=== PATIENT | female | born 1990 | race American Indian/Alaskan Native ===

== ENCOUNTER 2016-09-10 18:02 | Emergency (ER) | payer MEDICAID, OTHER ==
[2016-09-10] MEDS ORDERED: Ondansetron 4 MG/2 ML SDV IVPUSH ONE (18:39)
[2016-09-10] MEDS ORDERED: HYDROmorphone 0.5 MG/0.5 ML Syringe IVPUSH ONE (18:39)
[2016-09-10] MEDS ORDERED: Sodium Chloride 0.9% 1,000 ML IV SCH (18:45)
--- NOTE | 2016-09-10 18:45 | EDM.PDOC ---
[id number] Complaint: Abdominal Pain Stated Complaint: STOMACH PAIN Time Seen by Provider: 09/10/16 18:40 - History of Present Illness INITIAL COMMENTS - FREE TEXT/NARRATIVE: we elected to do an abdominal pelvic CT on this woman. She is a significant amount of stool present otherwise it was negative. Her urinalysis suggests a UTI. She was given 400 mg of Cipro IV and I will send her out with a prescription for Cipro she can fill tomorrow for this. 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 - Related Data Allergies/ADRs: Allergies Allergy/AdvReac Type Severity Reaction Status Date / Time quetiapine fumarate Allergy Severe Anaphylactic Verified 11/28/13 07:11 [From Seroquel] Shock diphenhydramine HCl Allergy Swelling Verified 11/28/13 02:13 [From Benadryl Allergy] Home Meds: Home Meds Acetaminophen [Tylenol] 650 mg PO Q4H PRN #100 tablet 05/04/15 [Rx] Pnv With Ca,No.72/Iron,Carb/FA [ Plus Iron Tablet] 1 each PO DAILY #100 tablet 05/04/15 [Rx] Course - Vital Signs Last Recorded V/S: Last Vital Signs Temp 36.9 C 09/10/16 19:06 Pulse 77 09/10/16 21:25 Resp 16 09/10/16 21:25 BP 112/52 L 09/10/16 21:25 Pulse Ox 97 09/10/16 21:25 - Orders/Labs/Meds Labs: Laboratory Tests 09/10/16 09/10/16 09/10/16 Range/Units 18:49 18:49 18:49 WBC 12.7 H (4.5-11.0) K/uL RBC 5.19 (3.30-5.50) M/uL Hgb 13.2 (12.0-15.0) g/dL Hct 41.3 (36.0-48.0) % MCV 80 (80-98) fL MCH 25 L (27-31) pg MCHC 32 (32-36) % Plt Count 366 (150-400) K/uL Neut % (Auto) 73 H (36-66) % Lymph % (Auto) 18 L (24-44) % [place] % (Auto) 6 (2-6) % Eos % (Auto) 2 (2-4) % Baso % (Auto) 1 (0-1) % Sodium 141 (140-148) mmol/L Potassium 3.9 (3.6-5.2) mmol/L Chloride 106 (100-108) mmol/L Carbon Dioxide 24 (21-32) mmol/L Anion Gap 11.4 (5.0-14.0) mmol/L BUN 15 D (7-18) mg/dL Creatinine 0.7 (0.6-1.0) mg/dL Est Cr Clr Drug Dosing 105.17 mL/min Estimated GFR (MDRD) > 60 (>60) Glucose 124 H (74-106) mg/dL Calcium 8.4 L (8.5-10.1) mg/dL Total Bilirubin 0.2 (0.2-1.0) mg/dL AST 12 L (15-37) U/L ALT 17 (12-78) U/L Alkaline Phosphatase 97 (46-116) U/L Total Protein 7.4 (6.4-8.2) g/dL Albumin 3.7 (3.4-5.0) g/dL Globulin 3.7 H (2.3-3.5) g/dL Albumin/Globulin Ratio 1.0 L (1.2-2.2) Amylase 105 (25-115) U/L Lipase 179 (73-393) U/L Urine Color Urine Appearance Urine pH (4.5-8.0) Ur Specific [place] (1.008-1.030) Urine Protein (NEGATIVE) mg/dL Urine Glucose (UA) (NEGATIVE) mg/dL Urine Ketones (NEGATIVE) mg/dL Urine Occult Blood (NEGATIVE) Urine Nitrite (NEGATIVE) Urine Bilirubin (NEGATIVE) Urine Urobilinogen (NORMAL) mg/dL Ur Leukocyte Esterase (NEGATIVE) Urine RBC (0-5) Urine WBC (0-5) Ur Epithelial Cells Amorphous Sediment Urine Bacteria Urine Mucus 09/10/16 Range/Units 19:58 WBC (4.5-11.0) K/uL RBC (3.30-5.50) M/uL Hgb (12.0-15.0) g/dL Hct (36.0-48.0) % MCV (80-98) fL MCH (27-31) pg MCHC (32-36) % Plt Count (150-400) K/uL Neut % (Auto) (36-66) % Lymph % (Auto) (24-44) % [place] % (Auto) (2-6) % Eos % (Auto) (2-4) % Baso % (Auto) (0-1) % Sodium (140-148) mmol/L Potassium (3.6-5.2) mmol/L Chloride (100-108) mmol/L Carbon Dioxide (21-32) mmol/L Anion Gap (5.0-14.0) mmol/L BUN (7-18) mg/dL Creatinine (0.6-1.0) mg/dL Est Cr Clr Drug Dosing mL/min Estimated GFR (MDRD) (>60) Glucose (74-106) mg/dL Calcium (8.5-10.1) mg/dL Total Bilirubin (0.2-1.0) mg/dL AST (15-37) U/L ALT (12-78) U/L Alkaline Phosphatase (46-116) U/L Total Protein (6.4-8.2) g/dL Albumin (3.4-5.0) g/dL Globulin (2.3-3.5) g/dL Albumin/Globulin Ratio (1.2-2.2) Amylase (25-115) U/L Lipase (73-393) U/L Urine Color Yellow Urine Appearance Slightly cloudy Urine pH 5.0 (4.5-8.0) Ur Specific [place] 1.030 (1.008-1.030) Urine Protein Negative (NEGATIVE) mg/dL Urine Glucose (UA) Normal (NEGATIVE) mg/dL Urine Ketones Negative (NEGATIVE) mg/dL Urine Occult Blood Negative (NEGATIVE) Urine Nitrite Negative (NEGATIVE) Urine Bilirubin Negative (NEGATIVE) Urine Urobilinogen Normal (NORMAL) mg/dL Ur Leukocyte Esterase Moderate (NEGATIVE) Urine RBC Not seen (0-5) Urine WBC 10-20 H (0-5) Ur Epithelial Cells Many Amorphous Sediment Not seen Urine Bacteria Many Urine Mucus Few Meds: Medications Discontinued Medications Generic Name Dose Route Start Last Admin Trade Name Freq PRN Reason Stop Dose Admin Hydromorphone HCl 0.5 mg 09/10/16 18:39 09/10/16 19:02 Dilaudid IVPUSH 09/10/16 18:40 0.5 mg ONETIME ONE Administration Hydromorphone HCl 1 mg 09/10/16 19:46 09/10/16 19:58 Dilaudid IVPUSH 09/10/16 19:47 1 mg ONETIME ONE Administration Sodium Chloride 1,000 mls @ 999 mls/hr 09/10/16 18:45 09/10/16 19:00 Normal Saline IV 999 mls/hr ASDIRECTED JAGDISH Administration Lactated Ringer's 1,000 mls @ 999 mls/hr 09/10/16 19:45 09/10/16 19:59 Ringers, Lactated IV 999 mls/hr ASDIRECTED JAGDISH Administration Ciprofloxacin/Dextrose 400 mg/ 200 mls @ 200 mls/hr 09/10/16 20:53 09/10/16 21:20 Premix IV 09/10/16 21:52 200 mls/hr ONETIME ONE Administration Lactated Ringer's 1,000 mls @ 999 mls/hr 09/10/16 21:15 09/10/16 21:17 Ringers, Lactated IV 999 mls/hr ASDIRECTED JAGDISH Administration Sodium Chloride 83 mls @ 3 mls/sec 09/10/16 21:11 09/10/16 21:53 Normal Saline IV 09/10/16 21:12 3 mls/sec ONETIME ONE Administration Iopamidol 141 ml 09/10/16 21:15 09/10/16 21:53 Isovue-300 (61%) IV 150 ml . DIRECTED JAGDISH Administration Ketorolac Tromethamine 30 mg 09/10/16 20:55 09/10/16 21:15 Toradol IVPUSH 09/10/16 20:56 30 mg ONETIME ONE Administration Morphine Sulfate 4 mg 09/10/16 21:49 09/10/16 22:01 Morphine IVPUSH 09/10/16 21:50 4 mg ONETIME ONE Administration Ondansetron HCl 4 mg 09/10/16 18:39 09/10/16 19:03 Zofran IVPUSH 09/10/16 18:40 4 mg ONETIME ONE Administration Sodium Chloride 10 ml 09/10/16 21:11 09/10/16 22:12 Normal Saline FLUSH 09/10/16 21:12 10 ml ONETIME ONE Administration Departure - Departure Time of Disposition: 23:29 Disposition: Home, Self-Care 01 Condition: good Clinical Impression: Constipation Qualifiers: Constipation type: unspecified constipation type Qualified Code(s): K59.00 - Constipation, unspecified Instructions: Constipation, Adult, Urinary Tract Infection, Adult Referrals: PCP,None [Primary Care Provider] - Forms: ED Department Discharge Additional Instructions: 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 I am also providing you an antibiotic for your urinary tract infection that you can greens picker tomorrow. We gave you a dose of antibiotics through the IV tonight for it so you're covered until tomorrow. <LauraAlize - Last Filed: 09/17/16 08:07> ED HPI GI/ABDOMINAL - General Source: Reports: Patient, Family History Limitations: Reports: No limitations - History of Present Illness INITIAL COMMENTS - FREE TEXT/NARRATIVE: Pt has a history of GB disease. About 3 years ago she was to have her GB out and she was too far along with her preg to have it out. She has had pain for the past 2 days. She is nauseated but has not vomited. She had tacos yesterday and tody she had pizza. . She describes her pain in the midline extending more to the left. She is belchy. 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: Musculoskeletal History: Reports: Fracture Psychiatric History: Reports: Depression Social & Family History - Family History Family Medical History: Unobtainable Other Dermatologic Family History: Patient refuses to answer - Tobacco Use Smoking Status *Q: Light Tobacco Smoker Years of Tobacco use: 7 Packs/Tins Daily: 0.5 - Caffeine Use Caffeine Use: Reports: Soda - Alcohol Use Days Per Week of Alcohol Use: 0 - Recreational Drug Use Recreational Drug Use: No Drug Use in Last 12 Months: Yes Recreational Drug Type: Reports: Amphetamines (Speed), Ecstasy, Marijuana/ Hashish, Methamphetamine, Other (see below) Recreational Drug Use Frequency: Weekly Recreational Drug Last Use: 1 week ago ED ROS GENERAL - Review of Systems Review Of Systems: See Below Constitutional: Reports: decreased appetite HEENT: Reports: No symptoms Respiratory: Reports: No Symptoms Cardiovascular: Reports: No symptoms Endocrine: Reports: no symptoms GI/Abdominal: Reports: Abdominal pain, Decreased appetite, Nausea : Reports: no symptoms Musculoskeletal: Reports: no symptoms Skin: Reports: no symptoms Neurological: Reports: No Symptoms ED EXAM, GI/ABD - Physical Exam Exam: See Below Text/Narrative:: Pt arrived with pain in the epigastric area extending to the left. She had a normal stool this am. Exam Limited By: No limitations General Appearance: alert, anxious, moderate distress Ears: other Nose: normal inspection Throat/Mouth: Normal inspection Head: atraumatic Neck: normal inspection Respiratory/Chest: no respiratory distress Cardiovascular: regular rate, rhythm GI/Abdominal: tenderness, other (pt is tender in the epigastric area and this extends to the left. She does not have true guarding. ) Rectal (Female) Exam: Deferred Back Exam: normal inspection Extremities: normal inspection Neurological: alert, oriented, normal cognition Course - Orders/Labs/Meds Labs: Laboratory Tests 09/10/16 09/10/16 09/10/16 Range/Units 18:49 18:49 18:49 WBC 12.7 H (4.5-11.0) K/uL RBC 5.19 (3.30-5.50) M/uL Hgb 13.2 (12.0-15.0) g/dL Hct 41.3 (36.0-48.0) % MCV 80 (80-98) fL MCH 25 L (27-31) pg MCHC 32 (32-36) % Plt Count 366 (150-400) K/uL Neut % (Auto) 73 H (36-66) % Lymph % (Auto) 18 L (24-44) % [place] % (Auto) 6 (2-6) % Eos % (Auto) 2 (2-4) % Baso % (Auto) 1 (0-1) % Sodium 141 (140-148) mmol/L Potassium 3.9 (3.6-5.2) mmol/L Chloride 106 (100-108) mmol/L Carbon Dioxide 24 (21-32) mmol/L Anion Gap 11.4 (5.0-14.0) mmol/L BUN 15 D (7-18) mg/dL Creatinine 0.7 (0.6-1.0) mg/dL Est Cr Clr Drug Dosing 105.17 mL/min Estimated GFR (MDRD) > 60 (>60) Glucose 124 H (74-106) mg/dL Calcium 8.4 L (8.5-10.1) mg/dL Total Bilirubin 0.2 (0.2-1.0) mg/dL AST 12 L (15-37) U/L ALT 17 (12-78) U/L Alkaline Phosphatase 97 (46-116) U/L Total Protein 7.4 (6.4-8.2) g/dL Albumin 3.7 (3.4-5.0) g/dL Globulin 3.7 H (2.3-3.5) g/dL Albumin/Globulin Ratio 1.0 L (1.2-2.2) Amylase 105 (25-115) U/L Lipase 179 (73-393) U/L Urine Color Urine Appearance Urine pH (4.5-8.0) Ur Specific [place] (1.008-1.030) Urine Protein (NEGATIVE) mg/dL Urine Glucose (UA) (NEGATIVE) mg/dL Urine Ketones (NEGATIVE) mg/dL Urine Occult Blood (NEGATIVE) Urine Nitrite (NEGATIVE) Urine Bilirubin (NEGATIVE) Urine Urobilinogen (NORMAL) mg/dL Ur Leukocyte Esterase (NEGATIVE) Urine RBC (0-5) Urine WBC (0-5) Ur Epithelial Cells Amorphous Sediment Urine Bacteria Urine Mucus 09/10/16 Range/Units 19:58 WBC (4.5-11.0) K/uL RBC (3.30-5.50) M/uL Hgb (12.0-15.0) g/dL Hct (36.0-48.0) % MCV (80-98) fL MCH (27-31) pg MCHC (32-36) % Plt Count (150-400) K/uL Neut % (Auto) (36-66) % Lymph % (Auto) (24-44) % [place] % (Auto) (2-6) % Eos % (Auto) (2-4) % Baso % (Auto) (0-1) % Sodium (140-148) mmol/L Potassium (3.6-5.2) mmol/L Chloride (100-108) mmol/L Carbon Dioxide (21-32) mmol/L Anion Gap (5.0-14.0) mmol/L BUN (7-18) mg/dL Creatinine (0.6-1.0) mg/dL Est Cr Clr Drug Dosing mL/min Estimated GFR (MDRD) (>60) Glucose (74-106) mg/dL Calcium (8.5-10.1) mg/dL Total Bilirubin (0.2-1.0) mg/dL AST (15-37) U/L ALT (12-78) U/L Alkaline Phosphatase (46-116) U/L Total Protein (6.4-8.2) g/dL Albumin (3.4-5.0) g/dL Globulin (2.3-3.5) g/dL Albumin/Globulin Ratio (1.2-2.2) Amylase (25-115) U/L Lipase (73-393) U/L Urine Color Yellow Urine Appearance Slightly cloudy Urine pH 5.0 (4.5-8.0) Ur Specific [place] 1.030 (1.008-1.030) Urine Protein Negative (NEGATIVE) mg/dL Urine Glucose (UA) Normal (NEGATIVE) mg/dL Urine Ketones Negative (NEGATIVE) mg/dL Urine Occult Blood Negative (NEGATIVE) Urine Nitrite Negative (NEGATIVE) Urine Bilirubin Negative (NEGATIVE) Urine Urobilinogen Normal (NORMAL) mg/dL Ur Leukocyte Esterase Moderate (NEGATIVE) Urine RBC Not seen (0-5) Urine WBC 10-20 H (0-5) Ur Epithelial Cells Many Amorphous Sediment Not seen Urine Bacteria Many Urine Mucus Few
[2016-09-10] MEDS ORDERED: Lactated Ringers 1,000 ML IV SCH ×2 (19:45→21:15)
[2016-09-10] MEDS ORDERED: HYDROmorphone 1 MG/ML Syringe IVPUSH ONE (19:46)
[2016-09-10] MEDS ORDERED: Ciprofloxacin in D5W 400 MG in Premix Bag 1 BAG IV ONE ×2 (20:53)
[2016-09-10] MEDS ORDERED: Ketorolac 60 MG/2 ML SDV IVPUSH ONE (20:55)
[2016-09-10] MEDS ORDERED: Sodium Chloride 0.9% 10 ML SDV FLUSH ONE (21:11)
[2016-09-10] MEDS ORDERED: Iopamidol 612 MG/ML 150 ML Bottle IV SCH (21:15)
[2016-09-10 21:26] VITALS: BP 112/52
[2016-09-10] MEDS ORDERED: Morphine 4 MG/ML Syringe IVPUSH ONE (21:49)
== END 2016-09-10 23:42 | disposition home or self-care (01) ==
LOC: JP.ED 18:02
DX: K59.00 Constipation, unspecified (principal); Z88.8 Allergy status to other drugs, medicaments and biological substances; F17.200 Nicotine dependence, unspecified, uncomplicated
CPT/HCPCS: 36415; 74177; 76705; 80053; 81001; 82150; 83690; 85025; 87086; 96361; 96365; 96375; 96376; 99284; J0744; J1170; J1885; J2270; J2405; J7030; J7040; J7050; J7120

== ENCOUNTER 2019-06-11 17:13 | Emergency (ER) | payer MEDICAID, OTHER ==
[2019-06-11 17:27] VITALS: BP 146/69; PULSE 100
--- NOTE | 2019-06-11 17:54 | EDM.PDOC ---
ED HPI GENERAL MEDICAL PROBLEM - General Chief Complaint: ENT Problem Stated Complaint: RT SIDE TOOTH PAIN Time Seen by Provider: 06/11/19 17:40 Source of Information: Reports: Patient History Limitations: Reports: No Limitations - History of Present Illness INITIAL COMMENTS - FREE TEXT/NARRATIVE: 28-year-old female with inflamed, painful tooth infection on the right mandible. It is been worsening for the past 48 hours. She starting to develop some radiation down the right side of her neck, no fevers or chills. She called the dentist today and they weren't able to get her in until next week. Onset: Gradual Duration: Day(s): (2-3 days) Associated Symptoms: Reports: No Other Symptoms Right Face/Facial Pain Score (Numeric/FACES): 5 - Related Data Allergies Allergy/AdvReac Type Severity Reaction Status Date / Time quetiapine fumarate Allergy Severe Anaphylactic Verified 06/11/19 17:55 [From Seroquel] Shock diphenhydramine HCl Allergy Swelling Verified 06/11/19 17:55 [From Benadryl Allergy] Home Meds: Home Meds Acetaminophen [Tylenol] 650 mg PO Q4H PRN #100 tablet 05/04/15 [Rx] Past Medical History - Past Health History Medical/Surgical History: Denies Medical/Surgical History Cardiovascular History: Reports: Heart Murmur Respiratory History: Reports: Asthma Gastrointestinal History: Reports: Cholelithiasis 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 Denies: Throat Pain Respiratory: Denies: Shortness of Breath Cardiovascular: Denies: Chest Pain GI/Abdominal: Denies: Nausea, Vomiting ED EXAM, ENT - Physical Exam Exam: See Below Exam Limited By: No Limitations General Appearance: Alert, No Apparent Distress Mouth/Throat: Other (Deep dental caries and several molars of the mandible bilaterally. There is erythema around the second molar on the right side and it' s very tender to palpation) Course - Vital Signs Last Recorded V/S: Last Vital Signs Temp 98.2 F 06/11/19 17:32 Pulse 100 06/11/19 17:32 Resp 16 06/11/19 17:32 BP 146/69 H 06/11/19 17:32 Pulse Ox 98 06/11/19 17:32 - Re-Assessments/Exams Free Text/Narrative Re-Assessment/Exam: 06/11/19 17:52 Patient was started on penicillin VK 500 mg 4 times daily, given 6 hydrocodone for extra pain control for the first 24-48 hours, and I recommended a dose of naproxen twice daily for the next 2 days. She is going to call the dentist on Friday, she can return if worsening despite treatment. Departure - Departure Time of Disposition: 18:00 Disposition: Home, Self-Care 01 Condition: Good Clinical Impression: Dental abscess - Discharge Information Instructions: Dental Abscess, [id number] Referrals: PCP,None [Primary Care Provider] - Forms: ED Department Discharge Care Plan Goals: Take antibiotic 4 times a day until you are able to see the dentist. Call Friday for an appointment. Aleve twice daily for the next 2-3 days along with stronger pain medication as prescribed if needed. Return if worsening despite antibiotic, such as increased swelling or fever. Sepsis Event Note - Evaluation Sepsis Screening Result: No Definite Risk - Focused Exam Date Exam was Performed: 06/14/19 Time Exam was Performed: 08:09
== END 2019-06-11 18:01 | disposition home or self-care (01) ==
LOC: JP.ED 17:13
DX: K04.7 Periapical abscess without sinus (principal); K02.9 Dental caries, unspecified; F17.210 Nicotine dependence, cigarettes, uncomplicated; Z88.8 Allergy status to other drugs, medicaments and biological substances
CPT/HCPCS: 99282

== ENCOUNTER 2023-06-14 16:56 | Emergency (ER) | payer MEDICAID ==
[2023-06-14 17:23] VITALS: BP 136/67; PULSE 64
[2023-06-14] MEDS ORDERED: Ketorolac 30 MG/ML SDV IM ONE (18:05)
== END 2023-06-14 18:33 | disposition home or self-care (01) ==
LOC: JP.ED 16:56
DX: O16.2 Unspecified maternal hypertension, second trimester (principal); K02.9 Dental caries, unspecified; Z3A.19 19 weeks gestation of pregnancy
CPT/HCPCS: 96372; 99283; J1885

== ENCOUNTER 2023-10-15 08:55 | Emergency (ER) | payer MEDICAID ==
[2023-10-15 10:16] VITALS: BP 117/49; PULSE 84
== END 2023-10-15 11:27 | disposition other institution (70) ==
LOC: JP.ED 08:55
DX: O36.8130 Decreased fetal movements, third trimester, not applicable or unspecified (principal); O99.333 Smoking (tobacco) complicating pregnancy, third trimester; F17.210 Nicotine dependence, cigarettes, uncomplicated; Z3A.38 38 weeks gestation of pregnancy; Z88.8 Allergy status to other drugs, medicaments and biological substances; Z79.899 Other long term (current) drug therapy; Z86.16 Personal history of COVID-19
CPT/HCPCS: 76819; 76819-26; 99283; 99285